=== PATIENT | female | born 1950 | race Caucasian/White ===

== ENCOUNTER → 2017-04-13 | Outpatient (CLI) | payer MEDICARE, MEDICAID ==
[~2017-04-13] MED LIST: EFFE150C PO; GABA400C5 PO; GLIP1TAB52 PO; HYDR-3111 PO; JANU50TA8 PO; LAMO150T PO; MOBI7.5T PO; MULTTAB67 PO; PLAQ200T PO; PLAV75TA29 PO; PRAV80TA PO; ROPI1TAB PO; VARE1PAK3 PO; VARE1PAK5 PO; VENL75XR PO; ZOSTINJ SQ
[2017-04-13 16:32] LABS: AUTOMATED NEUTROPHIL # 2.7 TH/MM3 (1.8-7.7); BASOPHIL % 0.3 % (0.0-2.0); EOSINOPHIL % 0.7 % (0.0-4.0); HEMATOCRIT 37.3 % (35.0-46.0); HEMOGLOBIN 12.8 GM/DL (11.6-15.3); LYMPH % 21.3 % (9.0-44.0); LYMPHOCYTE # 0.9 TH/MM3 (1.0-4.8); MEAN CORPUSCULAR HEMOGLOBIN 33.1 PG (27.0-34.0); MEAN CORPUSCULAR HGB CONC 34.5 % (32.0-36.0); MEAN PLATELET VOLUME 8.1 FL (7.0-11.0); MONOCYTE # 0.5 TH/MM3 (0-0.9); NEUT % 65.7 % (16.0-70.0); PLATELET COUNT 130 TH/MM3 (150-450); RED BLOOD COUNT 3.88 MIL/MM3 (4.00-5.30); RED CELL DISTRIBUTION WIDTH 14.4 % (11.6-17.2); WHITE BLOOD COUNT 4.1 TH/MM3 (4.0-11.0)
[2017-04-13 17:27] LABS: RHEUMATOID FACTOR SCREEN NEGATIVE (NEGATIVE); WESTERGREN SEDIMENTATION RATE 35 mm/hr (0-30)
== END ==
LOC: PLAB 13:23
PROVIDERS: ATTEND Family Medicine
DX: M06.9 Rheumatoid arthritis, unspecified (principal); Z83.3 Family history of diabetes mellitus
CPT/HCPCS: 36415; 85025; 85652; 86430